=== PATIENT | female | born 1995 | race African-American/Black ===

== ENCOUNTER 2018-11-23 16:33 | Emergency (ER) | payer OTHER ==
[~2018-11-23] VITALS: Ht 165.1 cm; Wt 76.2 kg
[2018-11-23 16:52] LABS: URINE BILIRUBIN NEGATIVE (Negative); URINE BLOOD NEGATIVE (Negative); URINE CLARITY CLEAR; URINE COLOR YELLOW; URINE GLUCOSE-RANDOM* NEGATIVE (Negative); URINE KETONES NEGATIVE (Negative); URINE LEUKOCYTES-REFLEX TRACE (Negative); URINE NITRITE-REFLEX NEGATIVE (Negative); URINE PROTEIN (DIPSTICK) NEGATIVE (Negative); URINE UROBILINOGEN 0.2 E.U./dl (0.2-1.0)
[2018-11-23] MEDS ORDERED: OXYCODONE HCL10 MG PO (16:57)
[2018-11-23] MEDS ORDERED: CYCLOBENZAPRINE5 MG PO (18:44)
[2018-11-23 18:50] VITALS: BP 110/76
[2018-11-23] MEDS ORDERED: NORCO 10-325 T1 EACH PO (18:51)
== END 2018-11-23 19:01 | disposition home or self-care (01) ==
LOC: ER 16:33
PROVIDERS: Physician Assistant
DX: O26.891 Other specified pregnancy related conditions, first trimester (principal); M54.5 Low back pain; R10.31 Right lower quadrant pain; M54.2 Cervicalgia; R51 Headache; Z3A.12 12 weeks gestation of pregnancy; Z88.1 Allergy status to other antibiotic agents; V49.49XA Driver injured in collision with other motor vehicles in traffic accident, initial encounter; Y93.89 Activity, other specified; Y92.89 Other specified places as the place of occurrence of the external cause; Y99.8 Other external cause status

== ENCOUNTER 2021-03-06 20:49 | Emergency (ER) | payer OTHER ==
[~2021-03-06] VITALS: Ht 165.1 cm; Wt 68.0 kg
[~2021-03-06 20:49] MED LIST: CYCLOBENZAPRINE5 MG PO; NORCO 10-325 T1 EACH PO; OXYCODONE HCL10 MG PO
[2021-03-06 21:00] VITALS: BP 117/55
[2021-03-06 21:16] LABS: URINE BILIRUBIN NEGATIVE (Negative); URINE BLOOD NEGATIVE (Negative); URINE CLARITY CLEAR; URINE COLOR YELLOW; URINE GLUCOSE-RANDOM* NEGATIVE (Negative); URINE KETONES NEGATIVE (Negative); URINE LEUKOCYTES-REFLEX NEGATIVE (Negative); URINE NITRITE-REFLEX NEGATIVE (Negative); URINE PROTEIN (DIPSTICK) NEGATIVE (Negative); URINE UROBILINOGEN 0.2 E.U./dl (0.2-1.0)
[2021-03-06] MEDS ORDERED: FLAGYL500 M1 PO (21:41)
== END 2021-03-06 21:30 | disposition home or self-care (01) ==
LOC: ER 20:49
PROVIDERS: Nurse Practitioner Family
DX: N89.8 Other specified noninflammatory disorders of vagina (principal); R11.0 Nausea; Z79.891 Long term (current) use of opiate analgesic; Z79.899 Other long term (current) drug therapy; Z88.8 Allergy status to other drugs, medicaments and biological substances; W18.09XA Striking against other object with subsequent fall, initial encounter; Y93.89 Activity, other specified; Y92.89 Other specified places as the place of occurrence of the external cause; Y99.8 Other external cause status